=== PATIENT | male | born 1955 | race Two or more races ===

== ENCOUNTER 2017-03-02 09:03 | Inpatient (IN) | payer BC ==
[~2017-03-02] VITALS: Ht 185.4 cm; Wt 122.0 kg
[2017-03-02 09:47] LABS: EOSINOPHIL (%) 0.6 % (0-5); EOSINOPHIL COUNT 0.1 K/uL (0-0.3); HEMATOCRIT 45.3 % (38.0-50.0); IMMATURE GRANULOCYTE (%) 0.4 % (0.0-0.7); LYMPHOCYTE COUNT 0.8 K/uL (1.0-2.8); MCH 28.8 PG (29.0-34.0); MCHC 33.3 G/DL (30.0-36.0); MCV 86.3 FL (86-99); MEAN PLAT.VOLUME 9.3 uM^3 (9.0-12.4); MONOCYTE (%) 6.7 % (3-12); MONOCYTE COUNT 0.6 K/uL (0-0.8); NEUTROPHIL (%) 83.7 % (45-76); PLATELET COUNT 203 K/uL (156-360); RBC DIS.WIDTH-CV 13.2 % (11.8-14.6); RBC DIS.WIDTH-SD 41.5 % (39-53); RED BLOOD COUNT 5.25 M/uL (4.00-5.50); WHITE BLOOD COUNT 9.6 K/uL (4.1-10.2)
[2017-03-02 10:05] LABS: AMYLASE 31 IU/L (1-118); CHLORIDE 105 mEq/L (99-109); POTASSIUM 4.2 mEq/L (3.7-5.4); SODIUM 139 mEq/L (136-147)
[2017-03-02 10:07] LABS: GLUCOSE 116 mg/dL (70-99)
[2017-03-02 10:08] LABS: ANION GAP 8 MEQ/L (2-14)
[2017-03-02 10:10] LABS: SERUM ETHYL ALCOHOL < 10 mg/dL
[2017-03-02 10:11] LABS: GFR ESTIMATE (CALCULATED) > 59 mL/min/ (58.99-99999); UREA NITROGEN (BUN) 17 mg/dL (9-23)
[2017-03-02 10:14] LABS: LIPASE 21 U/L (1.0-51.0)
[2017-03-02] MEDS ORDERED: ZESTRIL5 MG PO (11:13)
[2017-03-02] MEDS ORDERED: ZYRTEC10 M3 PO (11:14)
[2017-03-02] MEDS ORDERED: PRAVACHOL40 MG PO (11:14)
[2017-03-02 18:03] VITALS: BP 120/60
[2017-03-03 00:20] VITALS: BP 104/59
[2017-03-03 04:17] VITALS: BP 102/54
[2017-03-03 08:15] VITALS: BP 106/58
[2017-03-03 12:24] VITALS: BP 132/60
[2017-03-03 16:00] VITALS: BP 136/62; BP 147/66
[2017-03-03 19:26] VITALS: BP 109/50
[2017-03-04 00:19] VITALS: BP 122/57
[2017-03-04 03:59] VITALS: BP 131/65
[2017-03-04 08:33] VITALS: BP 128/63
[2017-03-04] MEDS ORDERED: ASPIR-LOW81 MG PO (09:56)
[2017-03-04] MEDS ORDERED: HYDROCODON-ACE1 EAC7 PO (09:57)
== END 2017-03-04 15:19 | disposition home or self-care (01) | DRG 494 ==
LOC: TRA 09:03 → SDC 12:30 → 2SOUTH 15:40 → 3EAST 15:40 → ENRESERV 15:41 → 3EAST 17:49
PROVIDERS: Emergency Medicine
PROC: 0QSK04Z Reposition Left Fibula with Internal Fixation Device, Open Approach (ICD-10-PCS; principal; 2017-03-02)
DX: S82.842B Displaced bimalleolar fracture of left lower leg, initial encounter for open fracture type I or II (principal); S91.019A Laceration without foreign body, unspecified ankle, initial encounter; E78.5 Hyperlipidemia, unspecified; I10 Essential (primary) hypertension; W20.8XXA Other cause of strike by thrown, projected or falling object, initial encounter; Y93.H9 Activity, other involving exterior property and land maintenance, building and construction; Y92.9 Unspecified place or not applicable
CPT/HCPCS: 73552; 73590; 73600; 76000; 80048; 80170; 81003; 82150; 83690; 85025; 86850; 86900; 86901; 93005; 94799; 99281; 99285; C1713; G0480; J0131; J0690; J1100; J1170; J1580; J1885; J2270; J2405; J3010; J7050; J7120